=== PATIENT | male | born 1955 | race Caucasian/White ===

== ENCOUNTER 2018-03-28 14:00 | Observation (INO) | payer BC ==
[~2018-03-28] VITALS: Ht 180.3 cm; Wt 86.2 kg
[2018-03-28] MEDS ORDERED: ASPIRIN 81 MG CHEW TAB PO ONE ×4 (14:15→22:15)
[2018-03-28 14:30] LABS: BASOPHILS # (AUTO) 0.1 (0.0-0.1); BASOPHILS % 0.7 % (0.0-1.0); EOSINOPHILS # (AUTO) 0.4 (0.0-0.4); EOSINOPHILS % 3.2 % (0.0-6.0); HEMOGLOBIN 13.8 g/dL (14.0-18.0); LYMPHOCYTES # (AUTO) 2.1 (1.0-3.2); LYMPHOCYTES % 15.4 % (18.0-39.1); MEAN CORPUSCULAR HEMOGLOBIN 29.2 pg (28-32); MEAN CORPUSCULAR HGB CONC 33.7 g/dL (31-35); MEAN CORPUSCULAR VOLUME 86.7 fL (81-99); MONOCYTES # (AUTO) 1.6 (0.2-0.8); MONOCYTES % 12.2 % (4.4-11.3); NEUTROPHILS # (AUTO) 9.1 (2.1-6.9); PLATELET COUNT 371 x10e3/uL (140-360); RED BLOOD COUNT 4.73 x10e6/uL (4.3-5.7); RED CELL DISTRIBUTION WIDTH 11.9 % (11.7-14.4)
[2018-03-28 14:35] LABS: INR 1.2; PROTHROMBIN TIME 14.3 seconds (11.9-14.5)
[2018-03-28 14:36] LABS: PARTIAL THROMBOPLASTIN TIME 36.7 seconds (23.8-35.5)
--- NOTE | 2018-03-28 14:41 | Diagnostic Imaging Report ---
PROCEDURE:CHEST SINGLE (PORTABLE) TECHNIQUE:Portable AP chest INDICATION:COPD; chest pain COMPARISON:None. FINDINGS: Bibasilar predominant interstitial thickening. Small right pleural effusion with lower lobe airspace opacity. Enlarged cardiac silhouette. Normal central vasculature. Intact skeleton. CONCLUSION: 1. Lower lobe predominant interstitial thickening and small right pleural effusion/pleural thickening. Differential considerations include interstitial lung disease/fibrosis, developing pulmonary edema and/or atypical infection. 2. Cardiomegaly. Dictated by: Zach Erazo M.D. on 03/28/2018 at 14:44 Electronically approved by: Zach Erazo M.D. on 03/28/2018 at 14:44
[2018-03-28 14:44] LABS: ALANINE AMINOTRANSFERASE 30 IU/L (0-55); ALBUMIN 3.5 g/dL (3.5-5.0); ALBUMIN/GLOBULIN RATIO 0.8 (0.8-2.0); ALKALINE PHOSPHATASE 104 IU/L (40-150); ANION GAP 11.5 mmol/L (8-16); BLOOD UREA NITROGEN 19 mg/dL (7-26); BUN/CREATININE RATIO 20 (6-25); CARBON DIOXIDE 28 mmol/L (22-29); CHLORIDE 102 mmol/L (98-107); CREATINE KINASE 76 IU/L (30-200); CREATININE, SERUM 0.96 mg/dL (0.72-1.25); EST GLOMERULAR FILTRATION RATE > 60 ML/MIN (60-); GLUCOSE 112 mg/dL (74-118); MAGNESIUM 2.1 MG/DL (1.3-2.1); POTASSIUM 4.5 mmol/L (3.5-5.1); SODIUM 137 mmol/L (136-145)
[2018-03-28 15:04] LABS: THYROID STIMULATING HORMONE 1.546 uIU/mL (0.350-4.940)
[2018-03-28] MEDS: NITROGLYCERIN 0.4 MG SUBL SL PRN ×2 (15:33→15:42)
[2018-03-28] MEDS ORDERED: ENOXAPARIN SODIUM INJ 100 MG/ML SYR SC STA (15:52)
--- OUTSIDE RECORDS SUMMARY | 2018-03-28 16:37 | XMS REPORT ---
Author Author [facility] Address Unknown Phone Unavailable Care Team Providers Care Manufacturing Engineer Name Role Phone JITENDRA WEBB Unavailable Unavailable Problems This patient has no known problems. Allergies, Adverse Reactions, Alerts This patient has no known allergies or adverse reactions. Medications This patient has no known medications. Results Test Description Test Time Test Comments Text Results Atomic Results Result Comments CHEST SINGLE (PORTABLE) 2018-03-28 14:44:00 [facility] [address] [address] Patient Name: FREDDIE MATA MR #: [id number] : 1955 Age/Sex: 62/M Req #: [id number] Adm Physician: Ordered by: ALE CERDA SUPPLY ANALYST Report #: [id number] Location: ER Room/Bed: ___ Procedure: [id number] DX/CHEST SINGLE (PORTABLE) Exam Date: 03/28/18 Exam Time: 1417 REPORT STATUS: Signed PROCEDURE : CHEST SINGLE (PORTABLE) TECHNIQUE: Portable AP chest INDICATION: COPD; chest pain COMPARISON: None. FINDINGS: Bibasilar predominant interstitial thickening. Small right pleural effusion with lower lobe airspace opacity. Enlarged cardiac silhouette. Normal central vasculature. Intact skeleton. CONCLUSION: 1. Lower lobe predominant interstitial thickening and small right pleural effusion/pleural thickening. Differential considerations include interstitial lung disease/fibrosis, developing pulmonary edema and/or atypical infection. 2. Cardiomegaly. Dictated by: Sully Erazo M.D. on 03/28/2018 at 14:44 Electronically approved by: Sully Erazo M.D. on 03/28/2018 at 14:44 Dictated By: SULLY ERAZO MD 1444 Transcribed By: GENET on 03/28/18 1444 COPY TO: ALE CERDA NP
[2018-03-28] MEDS ORDERED: ALBUTEROL/IPRATROPIUM 3 ML NEB NEB ONE (16:45)
--- NOTE | 2018-03-28 16:55 | Diagnostic Imaging Report ---
EXAM: CT Chest WITH contrast (PE Protocol) INDICATION: \S\R/O PE...SOB \[id number] \S\1610 COMPARISON: None TECHNIQUE: Chest was scanned utilizing a multidetector helical scanner from the lung apex through the level of the diaphragm after administration of IV contrast. Thin section reconstructions were obtained with special concentration on the pulmonary arteries. Coronal and sagittal reformations were obtained. Pulmonary embolism protocol was performed. IV CONTRAST: 100 mL of Isovue-370 COMPLICATIONS: None RADIATION DOSE: Total DLP: 593.54 mGy*cm Estimated effective dose: (DLP x 0.014 x size factor) mSv CTDIvol has been reviewed. It is below the limits set by the Radiation Protocol Committee (RPC). FINDINGS: LINES/ TUBES: None. LUNGS AND AIRWAYS: No filling defect is identified within the pulmonary arteries to the segmental level. Emphysematous lung changes. Numerous lung nodules, the largest in left lower lobe measuring 3 x 2.9 cm (series 3, image 73). Some lung nodules are cavitary. Airways are normal. PLEURA: Loculated right pleural effusion. HEART AND MEDIASTINUM: The thyroid gland is normal. Mediastinal and bilateral hilar (right more than left) lymphadenopathy. For example 1.2 cm right paratracheal lymph node (series 2, image 40) or approximately 2.7 cm subcarinal lymph node conglomerate. No axillary lymphadenopathy. The heart is enlarged. There is no pericardial effusion. . Main pulmonary artery measures 3.2 cm in diameter and the ascending aorta measures 3.5 cm. UPPER ABDOMEN: 3.4 x 4.4 cm left hepatic lobe hypodensity is probably a cyst. Small dependent gallstones. 1 cm indeterminate left adrenal nodule (series 2, image 115). BONES: The visualized bony thorax is within normal limits. SOFT TISSUES: Unremarkable. IMPRESSION: No pulmonary emboli. Numerous metastatic lung nodules. Mediastinal and bilateral hilar lymphadenopathy. Multiloculated right pleural effusion, likely a malignant effusion. Cholelithiasis without CT evidence of cholecystitis. Signed by: Dr. Robert Villegas MD on 03/28/2018 4:51 PM
[2018-03-28 17:00] LABS: BILIRUBIN,URINE NEGATIVE (NEGATIVE); CLARITY,URINE CLEAR (CLEAR); COLOR,URINE YELLOW (YELLOW); KETONES,URINE NEGATIVE (NEGATIVE); LEUKOCYTE ESTERASE ,URINE NEGATIVE (NEGATIVE); NITRITE,URINE NEGATIVE (NEGATIVE); PROTEIN,URINE DIPSTICK NEGATIVE (NEGATIVE); URINE UROBILINOGEN 0.2 mg/dL (0.2 - 1)
[2018-03-28 17:31] LABS: BACTERIA,URINE RARE /HPF; HYALINE CASTS 0-1 (0-1); MUCUS,URINE FEW (RARE); WBC,URINE (MAN) 0-5 /HPF (0-5)
[2018-03-28 17:57] LABS: EOSINOPHILS % (MANUAL) 1 % (0-7); LYMPHOCYTES % (MANUAL) 14 % (19-48); MONOCYTES % (MANUAL) 6 % (3.4-9.0); NEUTROPHILS % (MANUAL) 79 % (40-74)
[2018-03-28 17:59] LABS: PLATELET ESTIMATE ADEQUATE; PLATELET MORPHOLOGY COMMENT NORMAL; RBC MORPHOLOGY COMMENT NORMAL
[2018-03-28 18:05] VITALS: BP 131/79
[2018-03-28 18:28] VITALS: BP 131/79
[2018-03-28 18:32] VITALS: BP 131/79
--- NOTE | 2018-03-28 19:56 | History and Physical ---
CHIEF COMPLAINT: Chest pain and shortness of breath. HISTORY OF PRESENT ILLNESS: Mr. Cabrales is a 62-year-old male, who presented to the emergency room with shortness of breath going on for last couple of months, progressively getting worse and now is having chest tightness. In the emergency room, patient underwent cardiac enzymes testing which was negative. CT of the chest showed loculated pleural effusion with mediastinal lymphadenopathy and nodule in the lung which looked like metastatic. Patient has history of smoking. He smoked for 45 years, 1 pack per day. He denies any nausea, vomiting, diarrhea. REVIEW OF SYSTEMS: GENERAL: Denies any fever or chills. HEAD: Denies any head trauma. ENT: Denies any earache. CVS: As above. RESPIRATORY: Shortness of breath. The rest of the review systems are negative except as in HPI. PAST MEDICAL HISTORY: None. SURGICAL HISTORY: Ruptured appendix repair. FAMILY AND SOCIAL HISTORY: Smoker for 45 years. Denies any alcohol use. Lives by himself. PHYSICAL EXAM: VITAL SIGNS: Temperature 98.2, pulse of 86, blood pressure 110/70, respiratory rate of 18, O2 sat 95%. HEENT: Head atraumatic, normocephalic. Pupils reactive. NECK: Supple. CHEST: Clear on the left side, but the right side has decreased air entry. No wheezing. HEART: S1, S2 audible. ABDOMEN: Soft. Previous surgical scar. Nontender, nondistended. Bowel sounds audible. EXTREMITIES: No clubbing, cyanosis or edema. NEUROLOGIC: Awake and alert. No focal neurologic deficit. LABS: White count of 13,000, hemoglobin 13.8, platelets 371,000. Chemistry is within normal limits. CT of the chest, I have reviewed the images, it is showing large right-sided pleural effusion which is loculated, thickened pleura, mediastinal lymphadenopathy, nodules in both the lungs. ASSESSMENT: Mr. Cabrales is a 62-year-old male who presented with chest pain, shortness of breath. Computed tomography showing evidence of pleural effusion with loculated, thickened pleura and mediastinal lymphadenopathy with lung nodules. Patient being a smoker, cancer is likely. PLAN: 1. Thoracentesis with cytology. 2. Patient will need bronchoscopy as well. At this point, we will plan that after thoracentesis is done. 3. Discontinue the Lovenox therapeutic dose as patient does not have PE. Job#: [id number] GE
[2018-03-28 20:00] VITALS: BP 123/73
[2018-03-28] MEDS ORDERED: SODIUM CHLORIDE 0.9% 100 ML ONE (22:03)
[2018-03-28] MEDS ORDERED: IOPAMIDOL 370 MG/ML 200 ML INFUS..BTL INJ ONE (22:03)
[2018-03-28 23:09] LABS: CREATINE KINASE MB 1.8 ng/mL (0-5.0)
[2018-03-29] VITALS (8 sets, daily range): BP systolic 109–140; BP diastolic 58–76
[2018-03-29] MEDS ORDERED: ENOXAPARIN SODIUM INJ 100 MG/ML SYR SC SCH (05:00)
[2018-03-29 07:26] LABS: CHOL/HDL RATIO 5.5 (3.9-4.7)
[2018-03-29] MEDS: NITROGLYCERIN 0.4 MG SUBL SL PRN (07:28)
[2018-03-29 07:50] LABS: CREATINE KINASE MB 1.7 ng/mL (0-5.0)
--- NOTE | 2018-03-29 10:27 | Consultation ---
DATE OF CONSULTATION: CARDIOLOGY CONSULTATION CLINICAL HISTORY: This is a 62-year-old white man admitted via the emergency room because of shortness of breath, as well as chest pains over the past week. This patient is a chronic cigarette smoker having smoked for approximately 45 years. He said he stopped smoking 2 months ago. He noticed chest pains, which he described as sharp and rated 6-8 on a scale of 10, waxing and waning worse with exertion, as well as with coughing. Not related to food ingestion. Persistent throughout the week. Never had it before. He came to the emergency room where EKG showed old apical inferior myocardial infarction. Echocardiogram showed borderline ejection fraction. Cardiology consultation requested. Initial cardiac enzymes are negative. His CT scan of the chest showed loculated pleural effusion with mediastinum adenopathy. Cannot exclude metastases. PAST MEDICAL HISTORY: He denies any diabetes, hypertension or hyperlipidemia. PAST SURGICAL HISTORY: Ruptured appendix. FAMILY HISTORY: Father from suicide. Mother from lung cancer. PERSONAL/SOCIAL HISTORY: He works in a [employer]. Used to work in a chemical plant. Does not drink. Stopped smoking 2 months ago, but has a history of smoking for 45 years. REVIEW OF SYSTEMS: Noncontributory. PHYSICAL EXAMINATION VITAL SIGNS: Stable. CARDIAC: Jugular veins were not distended. S1 and S2 were regular. There is no appreciable murmur. LUNGS: Clear. ABDOMEN: Soft. Bowel sounds are present. EXTREMITIES: No cyanosis, clubbing or edema. LABORATORY STUDIES: Electrolytes are normal. BUN is 19, creatinine 0.96. Liver functions are negative. Cholesterol is 176. TSH is 1.5. IMPRESSION 1. Persistent atypical chest pains: Worse with coughing as well as worse with walking and relieved by rest with electrocardiogram showing old inferior apical myocardial infarction. Ejection fraction is borderline. 2. Mediastinal adenopathy and loculated pleural effusion: Consider carcinoma and metastases. 3. Right upper quadrant tenderness: Consider gallbladder disease. 4. Loculated pleural effusion. 5. Chronic obstructive pulmonary disease. RECOMMENDATION: Agree with current plans for thoracentesis. This patient because of persistent chest pains sooner or later will require cardiac catheterization particularly given his abnormal EKG. Risks, benefits and alternatives of this procedure was explained to the patient, including the possibility of doing angioplasty and stenting in the same procedure. The patient is reluctant to have the stress done. Wants us to scheduled for Monday instead of Monday. Job#: [id number] RI cc:RIYA VALENTINE M.D.
--- NOTE | 2018-03-29 10:34 | Cardiology Report ---
DATE OF STUDY: ECHOCARDIOGRAM M-MODE: Borderline dilated left ventricle. Diminished left ventricular contractility. Left ventricular hypertrophy. Normal aortic and mitral valves. No pericardial effusion. SECTOR SCAN: Mildly enlarged left ventricle. Diminished left ventricular contractility. Ejection fraction 35% to 40%. The septum as well as a portion of the basal septal and basal lateral wall appears to be hypokinetic. Mitral, aortic and tricuspid valves grossly normal. There is no pericardial effusion. CAROTID DOPPLER STUDY WITH COLOR: Trace tricuspid regurgitation. CONCLUSION 1. Dilated left ventricle with diminished left ventricular contractility. Estimated ejection fraction 35% to 40%. 2. Septum as well as basal septal and basal lateral wall appears to be hypokinetic consistent with ischemic heart disease. 3. Trace tricuspid regurgitation. 4. Aortic sclerosis without definite stenosis with aortic velocity only 1.1 meters per second. Job#: [id number] CONSTANCE cc:RIYA VALENTINE M.D.
[2018-03-29] MEDS ORDERED: ACETAMINOPHEN 325 MG TAB PO PRN (12:00)
[2018-03-29] MEDS ORDERED: ONDANSETRON HCL INJ 2 MG/ML VIAL IV PRN (12:00)
--- NOTE | 2018-03-29 13:55 | Diagnostic Imaging Report ---
PROCEDURE: ULTRASOUND GUIDED THORACENTESIS COMPARISON: CT chest 03/28/2018. INDICATIONS:THORACENTESIS FINDINGS: After informed consent was obtained, the patient was placed in the sitting position and preliminary ultrasound of the posterior chest identified a safe route into the right pleural effusion. The overlying skin was prepped and draped in usual sterile fashion. Lidocaine 1% was used for local anesthesia. Under ultrasound guidance, a 5 Icelandic Yueh needle catheter was advanced into the pleural fluid, the catheter was advanced off the needle, and 350 cc william colored fluid were aspirated. Post procedure imaging showed essentially complete evacuation of the pleural effusion. The catheter was removed and a sterile, occlusive dressing was applied. The patient tolerated the procedure well and there were no immediate post-procedural complications. A post-thoracentesis chest radiograph will be obtained. CONCLUSION: Uncomplicated ultrasound-guided right thoracentesis with removal of 350 cc william-colored fluid. Dictated by: Sj Wilkes M.D. on 03/29/2018 at 13:57 Electronically approved by: Sj Wilkes M.D. on 03/29/2018 at 13:57
--- NOTE | 2018-03-29 14:44 | Diagnostic Imaging Report ---
PROCEDURE: CHEST XRAY POST PROCEDURE COMPARISON: Chest radiograph 03/28/2018, CT chest 03/28/2018. INDICATIONS: POST THORACENTESIS FINDINGS: See conclusion CONCLUSION: Interval right thoracentesis with near-complete evacuation of right pleural effusion. No pneumothorax. Bilateral pulmonary nodules and opacities seen to better advantage on comparison cross-sectional imaging. Dictated by: Sj Wilkes M.D. on 03/29/2018 at 14:46 Electronically approved by: Sj Wilkes M.D. on 03/29/2018 at 14:46
[2018-03-29 15:41] LABS: BODY FLUID APPEARANCE CLOUDY; BODY FLUID COLOR RED; BODY FLUID TYPE PLEURAL
[2018-03-29 15:42] LABS: RBC,BODY FLUID 8999 cells/uL; WBC,BODY FLUID 1693 cells/uL
[2018-03-29 15:51] LABS: LYMPHOCYTES,BODY FLUID 35 %; MONO/MACROPHG,BODY FLUID 18 %; NEUTROPHILS,BODY FLUID 47 %
--- NOTE | 2018-03-29 15:57 | Diagnostic Imaging Report ---
PROCEDURE:US GALLBLADDER COMPARISON:[facility], CT, CT CHEST W, 03/28/2018, 16:12. INDICATIONS:RUQ TENDERNESS TECHNIQUE: Fair-scale and color doppler transverse and longitudinal images of the right upper quadrant of the abdomen were obtained. FINDINGS: Liver: 12.2 cm in right mid-clavicular line. Increased echogenicity. 3.6 x 2.6 x 4.7 cm cystic, anechoic lesion in the left hepatic lobe, corresponding to the simple cyst noted on prior CT No other masses. Main portal vein: 0.8 cm, hepatopetal flow Gallbladder: Several mobile echogenic stones with posterior acoustic shadowing are noted in the gallbladder neck. No sludge. No wall thickening or pericholecystic fluid. Common Bile Duct: 0.3 cm Sonographic Page's sign: Negative Right kidney: 11.2 cm. Normal echogenicity. No solid masses or hydronephrosis. Pancreas: The visualized portions are unremarkable. Inferior vena cava: Patent Aorta: Within normal limits Ascites: None in the right upper quadrant of the abdomen. Incidental note is made of a right pleural effusion. CONCLUSION: 1. Cholelithiasis, without sonographic evidence of cholecystitis. 2. Diffuse hepatic steatosis. 3. 3.6 cm simple cyst in the left hepatic lobe. 4. Right pleural effusion. Cortez Mondragon M.D. Dictated by: Cortez Mondragon M.D. on 03/29/2018 at 16:00 Electronically approved by: Cortez Mondragon M.D. on 03/29/2018 at 16:00
[2018-03-29] MEDS: FAMOTIDINE 20 MG TAB PO SCH (16:30)
[2018-03-29] MEDS: ENOXAPARIN SOD INJ 40 MG/0.4 ML SYR SC SCH (16:41)
[2018-03-30] VITALS (12 sets, daily range): BP systolic 106–129; BP diastolic 63–80
[2018-03-30 06:14] LABS: BASOPHILS # (AUTO) 0.1 (0.0-0.1); BASOPHILS % 0.9 % (0.0-1.0); EOSINOPHILS # (AUTO) 0.6 (0.0-0.4); EOSINOPHILS % 5.3 % (0.0-6.0); HEMATOCRIT 41.6 % (38.2-49.6); LYMPHOCYTES # (AUTO) 2.4 (1.0-3.2); LYMPHOCYTES % 20.2 % (18.0-39.1); MEAN CORPUSCULAR HEMOGLOBIN 29.5 pg (28-32); MEAN CORPUSCULAR HGB CONC 33.7 g/dL (31-35); MEAN CORPUSCULAR VOLUME 87.6 fL (81-99); MONOCYTES # (AUTO) 1.7 (0.2-0.8); MONOCYTES % 14.3 % (4.4-11.3); NEUTROPHILS # (AUTO) 6.9 (2.1-6.9); PLATELET COUNT 375 x10e3/uL (140-360); RED BLOOD COUNT 4.75 x10e6/uL (4.3-5.7); RED CELL DISTRIBUTION WIDTH 11.9 % (11.7-14.4)
[2018-03-30 06:27] LABS: INR 1.18; PROTHROMBIN TIME 14.1 seconds (11.9-14.5)
[2018-03-30 06:28] LABS: PARTIAL THROMBOPLASTIN TIME 42.9 seconds (23.8-35.5)
[2018-03-30 06:31] LABS: ANION GAP 12.8 mmol/L (8-16); BLOOD UREA NITROGEN 17 mg/dL (7-26); BUN/CREATININE RATIO 18 (6-25); CALCIUM 11.1 mg/dL (8.4-10.2); CARBON DIOXIDE 28 mmol/L (22-29); CHLORIDE 95 mmol/L (98-107); CREATININE, SERUM 0.96 mg/dL (0.72-1.25); EST GLOMERULAR FILTRATION RATE > 60 ML/MIN (60-); GLUCOSE 118 mg/dL (74-118); POTASSIUM 4.8 mmol/L (3.5-5.1); SODIUM 131 mmol/L (136-145)
[2018-03-30] MEDS: FAMOTIDINE 20 MG TAB PO SCH ×2 (07:30→17:08)
[2018-03-30] MEDS ORDERED: SODIUM CHLORIDE 0.9% 1000ML 1,000 ML ONE (08:16)
[2018-03-30] MEDS ORDERED: MIDAZOLAM HCL 2 MG/2 ML VIAL ONE (08:16)
[2018-03-30] MEDS ORDERED: FENTANYL CITRATE/PF 100MCG/2 ML INJ ONE (08:16)
[2018-03-30] MEDS ORDERED: HEPARIN SOD/SOD CHLORIDE 2,000 ML ONE (08:16)
[2018-03-30] MEDS ORDERED: IOPAMIDOL 370 MG/ML 200 ML INFUS..BTL INJ ONE (08:16)
[2018-03-30] MEDS ORDERED: LIDOCAINE HCL 2% LOCAL 20 ML VIAL ONE (08:16)
[2018-03-30 08:34] LABS: EOSINOPHILS % (MANUAL) 5 % (0-7); LYMPHOCYTES % (MANUAL) 23 % (19-48); MONOCYTES % (MANUAL) 16 % (3.4-9.0); NEUTROPHILS % (MANUAL) 56 % (40-74); PLATELET ESTIMATE ADEQUATE; PLATELET MORPHOLOGY COMMENT NORMAL; RBC MORPHOLOGY COMMENT NORMAL
[2018-03-30] MEDS ORDERED: VERAPAMIL HCL 2.5 MG/ML 2 ML VIAL ONE (08:42)
--- NOTE | 2018-03-30 14:58 | Operative Report ---
DATE OF PROCEDURE: March 30, 2018 PROCEDURE: Cardiac catheterization. CLINICAL HISTORY AND INDICATIONS: This is a 62-year-old white male who presented with persistent chest pains unrelieved with no previous cardiac history but with EKG showing possible old inferior wall myocardial infarction and with diminished left ventricular ejection fraction not previously known. After discussing the various diagnostic and treatment alternatives, he elected to proceed with cardiac catheterization, possible angioplasty and stenting, the risks, benefits and alternatives being explained and understood. PROCEDURE: He was brought to the cardiac catheterization laboratory in a fasting and sedated state. Using aseptic technique, Betadine skin preparation, and lidocaine local anesthesia, the right femoral artery was entered using the modified Seldinger technique. A 4-Faroese sheath was inserted inside this vessel. Diagnostic coronary angiography was carried out using 4-Faroese #4 Eleni catheters. The patient had completely occluded right coronary artery with extensive collaterals from the left indicating this was a chronic lesion. It was felt that this should be left alone. He also had mild left main disease, maybe 10% to 20%, which should be left alone. All of the equipment was then withdrawn. Hemostasis was achieved by direct pressure. The patient was taken back to his room. CONCLUSIONS 1. Chronic total occlusion of the right coronary artery with extensive collaterals from the left. 2. Minimal coronary artery disease elsewhere including 10% to 20% left main to be treated medically. Job#: [id number] cc:RIYA VALENTINE M.D.
[2018-03-30] MEDS: ENOXAPARIN SOD INJ 40 MG/0.4 ML SYR SC SCH (16:45)
[2018-03-30] MEDS: BUDESONIDE/FORMOTEROL 160/4.5MCG INHALER INH SCH (20:15)
[2018-03-30] MEDS: ALBUTEROL/IPRATROPIUM 3 ML NEB NEB SCH (20:15)
[2018-03-31] VITALS (7 sets, daily range): BP systolic 106–134; BP diastolic 53–69
[2018-03-31] MEDS: ALBUTEROL/IPRATROPIUM 3 ML NEB NEB SCH ×4 (01:20→19:35)
[2018-03-31] MEDS: BUDESONIDE/FORMOTEROL 160/4.5MCG INHALER INH SCH ×2 (07:00→19:35)
[2018-03-31] MEDS: FAMOTIDINE 20 MG TAB PO SCH ×2 (08:37→17:40)
[2018-04-01] MEDS: ALBUTEROL/IPRATROPIUM 3 ML NEB NEB SCH ×3 (00:50→13:00)
[2018-04-01 05:00] VITALS: BP 118/72
[2018-04-01] MEDS: BUDESONIDE/FORMOTEROL 160/4.5MCG INHALER INH SCH (07:04)
[2018-04-01 08:00] VITALS: BP 107/69
[2018-04-01] MEDS: FAMOTIDINE 20 MG TAB PO SCH (08:00)
[2018-04-01] MEDS ORDERED: LISINOPRIL 2.5 MG TAB PO SCH (09:00)
[2018-04-01] MEDS ORDERED: ASPIRIN 81 MG CHEW TAB PO SCH (09:00)
[2018-04-01 11:59] VITALS: BP 107/71
--- NOTE | 2018-04-01 13:01 | Discharge Summary ---
FINAL DIAGNOSES 1. Coronary artery disease. 2. Lung mass with mediastinal adenopathy. 3. History of smoking. 4. Smoker. 5. Exudative pleural effusion. 6. Chronic systolic heart failure. ADMISSION HISTORY AND HOSPITAL COURSE: Mr. Cabrales is a 62-year-old male who presented to the emergency room with shortness of breath, and found to have bilateral pleural effusion and lung mass. Cardiology was consulted. The patient underwent cardiac catheterization, and showed 100% ostial lesion. No stents were done. Evidence of old IN. EF was 35% to 40%. Patient cannot be prescribed REBEKAH inhibitor because blood pressure is on the lower side. His CT of the chest showed evidence of lung masses and pleural effusion. Patient underwent thoracentesis. Pathology is pending. He will be discharged home and follow up with me for pathology results. Patient may need to do bronchoscopy with endobronchial ultrasound at [facility]. This was explained to the patient. Discharge medications were reviewed. RIYA VALENTINE MD Job#: [id number] AR
[2018-04-01] MEDS ORDERED: ATORVASTATIN 20 MG TAB PO SCH (21:00)
== END 2018-04-01 13:49 | disposition home or self-care (01) ==
LOC: ER 14:03 → ERHOLD 16:35 → IMCU 16:37
PROVIDERS: ADMIT Internal Medicine; ATTEND Internal Medicine
DX: I25.10 Atherosclerotic heart disease of native coronary artery without angina pectoris (principal); R07.9 Chest pain, unspecified; I25.82 Chronic total occlusion of coronary artery; J44.9 Chronic obstructive pulmonary disease, unspecified; R59.0 Localized enlarged lymph nodes; R91.8 Other nonspecific abnormal finding of lung field; I50.22 Chronic systolic (congestive) heart failure; I25.2 Old myocardial infarction; Z87.891 Personal history of nicotine dependence; J90 Pleural effusion, not elsewhere classified
CPT/HCPCS: 32555 ×2; 36415 ×3; 71045 ×2; 71260; 74470; 76705; 77002; 80048; 80053; 80061; 81001; 82550 ×2; 82553 ×2; 83615; 83735; 84157; 84443; 84484 ×2; 85025 ×2; 85610 ×2; 85730 ×2; 87071; 87075; 87086; 87102; 87116; 87205; 87206 ×2; 88112; 88305; 89051; 93005; 93306; 93454; 94640 ×7; 99284; C1766; G0378 ×5; J1650 ×2; J2001; J2250; J7030; J7050; Q9967 ×2; 36140; 93458